=== PATIENT | male | born 1990 | race Native Hawaiian/Other Pacific Islander ===

== ENCOUNTER 2017-10-26 18:31 | Emergency (ER) | payer OTHER ==
[2017-10-26] MEDS ORDERED: KETOROLAC 60 MG/2 ML VIAL IM STA (18:49)
[2017-10-26] MEDS ORDERED: IBUPROFEN 800 MG TAB PO STA (18:55)
--- NOTE | 2017-10-26 19:20 | XR ---
PROCEDURE: XR ankle complete LT 3 views DATE AND TIME: 10/26/2017 7:14 PM REFERRING PHYSICIAN: Sam Jimenez DO CLINICAL INDICATION: PHH, Pain TECHNIQUE: Department protocol. COMPARISON: None FINDINGS: There is no fracture or malalignment. The soft tissues are unremarkable. IMPRESSION: NO ACUTE PROCESS.
--- NOTE | 2017-10-26 19:20 | XR ---
PROCEDURE: XR tibia fibula LT 2 views DATE AND TIME: 10/26/2017 7:14 PM REFERRING PHYSICIAN: Sam Jimenez DO CLINICAL INDICATION: PHH, Pain after injury TECHNIQUE: Department protocol. COMPARISON: None FINDINGS: There is no fracture or malalignment. The soft tissues are unremarkable. IMPRESSION: NO ACUTE PROCESS.
--- NOTE | 2017-10-26 19:21 | XR ---
PROCEDURE: XR foot complete RT 3 views DATE AND TIME: 10/26/2017 7:14 PM REFERRING PHYSICIAN: Sam Jimenez DO CLINICAL INDICATION: PHH, Pain TECHNIQUE: Department protocol. COMPARISON: None FINDINGS: There is no fracture or malalignment. The soft tissues are unremarkable. IMPRESSION: NO ACUTE PROCESS.
--- NOTE | 2017-10-26 19:22 | XR ---
PROCEDURE: XR knee complete LT - 3V DATE AND TIME: 10/26/2017 7:14 PM REFERRING PHYSICIAN: Sam Jimenez DO CLINICAL INDICATION: PHH, Pain TECHNIQUE: Department protocol. COMPARISON: None FINDINGS: There is no fracture or malalignment. The soft tissues are unremarkable. IMPRESSION: NO ACUTE PROCESS.
--- NOTE | 2017-10-26 19:48 | ED ---
Fall HPI - General Chief Complaint: Fall Stated Complaint: 15' fall from roof Time Seen by Provider: 10/26/17 18:44 Source: patient Mode of arrival: wheelchair - History of Present Illness Initial Comments: This 27-year-old male presents with a complaint of a fall from the roof. He states that he is approximately 13 feet high when this occurred. He apparently had some slight range of a metal roof and he slid down and landed on his feet. He is complaining of some pain to his right heel, his left ankle, left tibia/ fibula, and left knee. He did continue to work for the rest of the day as this did occur at 11 AM. He has been able to ambulate but states that he's been limping. He has not taken anything for pain for it as of yet. He denies any back pain. There are no other injuries or complaints or modifying factors. - Related Data Home Medications Medication Instructions Recorded Confirmed No Known Home Medications 05/31/15 10/26/17 Allergies Allergy/AdvReac Type Severity Reaction Status Date / Time No Known Allergies Allergy Verified 10/26/17 18:43 Review of Systems ROS Statement: Those systems with pertinent positive or pertinent negative responses have been documented in the HPI. ROS Other: All systems not noted in ROS Statement are negative. Past Medical History Past Medical History: Asthma History of Any Multi-Drug Resistant Organisms: None Reported Past Surgical History: No Surgical Hx Reported Past Psychological History: No Psychological Hx Reported Smoking Status: Never smoker Past Alcohol Use History: Occasional Past Drug Use History: None Reported General Exam - General Exam Comments Initial Comments: GENERAL: The patient is well nourished and well hydrated. VITAL SIGNS: Heart rate, blood pressure, respiratory rate reviewed as recorded in nurse's notes. EYES: Pupils are round and reactive. Extraocular movements are intact. No conjunctival / lid redness or swelling. ENT: No external evidence of injury, swelling, or ecchymosis. Airway is patent. Throat is clear. NECK: Nontender. No swelling or evidence of injury. No subcutaneous emphysema. Trachea is midline. No thyroid mass. HEART: Regular rate and rhythm. Good peripheral pulses. LUNGS/CHEST: Breath sounds clear and equal bilaterally. No rales, rhonchi, or wheezes. No ecchymosis, subcutaneous emphysema, or tenderness. ABDOMEN: Abdomen soft without tenderness. No palpable masses or organomegaly. No peritoneal signs. No abdominal wall swelling or ecchymosis. EXTREMITIES: There is tenderness present to the left knee, the lateral aspect of the left tibia/fibula, and the left ankle laterally. There is also some slight tenderness present to the right calcaneus. There is no evidence of any swelling or erythema. There is no lacerations noted. Patient is ambulatory with slight limp. Normal muscle tone and function. No thoracolumbar tenderness. NEUROLOGIC: Sensation is grossly intact. Cranial nerve exam reveals face is symmetrical, tongue is midline, speech is clear. SKIN: No abrasions or ecchymosis is noted. No induration or masses noted. PSYCHIATRIC: Alert and oriented. Appropriate behavior and judgment. Limitations: no limitations Course Vital Signs 10/26/17 18:37 Temperature 98.5 F Pulse Rate 20 L Respiratory 16 Rate Blood Pressure 161/85 O2 Sat by Pulse 97 Oximetry Medical Decision Making - Medical Decision Making The patient was seen and examined. X-rays were taken of the right foot, left ankle, left tibia/fibular, and the left knee. No fracture or acute osseous abnormality is identified. He does receive Motrin 800 for pain. He is in no significant distress on recheck. It is felt that he does have contusions and sprains but he is stable for discharge. Is counseled regarding his diagnosis in detail and he leaves in no distress. Disposition Clinical Impression: Fall, Knee sprain, Ankle sprain, Foot contusion, Hypertension Disposition: HOME SELF-CARE Condition: Good Instructions: Knee Sprain (ED), Ankle Sprain (ED), Foot Contusion (ED), Hypertension (ED) Is patient prescribed a controlled substance at d/c from ED?: No Referrals: None,Stated [Primary Care Provider] - 1-2 days Time of Disposition: 19:47
[2017-10-26 20:03] VITALS: BP 142/77; PULSE 56; RESP 18; TEMP 99.1
== END 2017-10-26 20:02 | disposition home or self-care (01) ==
LOC: EC 18:31
DX: S93.402A Sprain of unspecified ligament of left ankle, initial encounter (principal); S83.92XA Sprain of unspecified site of left knee, initial encounter; S90.31XA Contusion of right foot, initial encounter; I10 Essential (primary) hypertension; W13.2XXA Fall from, out of or through roof, initial encounter
CPT/HCPCS: 99283

== ENCOUNTER 2018-04-28 14:30 | Emergency (ER) | payer OTHER ==
[2018-04-28] MEDS ORDERED: IPRATROPIUM-ALBUTEROL 3 ML NEB INHALATION STA (15:14)
--- NOTE | 2018-04-28 15:24 | XR ---
EXAMINATION TYPE: XR chest 2V DATE OF EXAM: 04/28/2018 COMPARISON: NONE HISTORY: Cough and chest pain TECHNIQUE: Frontal and lateral views of the chest are obtained. FINDINGS: No focal consolidation, pleural effusion or pneumothorax. The cardio missile silhouette is within normal limits. Airway is clear. Visualized osseous structures are intact. Limited evaluation o f the upper abdomen is unremarkable. IMPRESSION: No acute cardiopulmonary process.
[2018-04-28] MEDS ORDERED: SODIUM CHLORIDE 0.9% 1,000 ML IV STA (15:30)
[2018-04-28 15:37] LABS: Basophils % (A) 0 %; Eosinophils # (A) 0.2 k/uL (0-0.7); Eosinophils % (A) 2 %; HCT 46.9 % (39.0-53.0); HGB 15.6 gm/dL (13.0-17.5); Lymphocytes # (A) 1.4 k/uL (1.0-4.8); Lymphocytes % (A) 15 %; MCH 26.1 pg (25.0-35.0); MCHC 33.2 g/dL (31.0-37.0); MCV 78.5 fL (80.0-100.0); Mean Platelet Volume 6.7; Monocytes # (A) 0.6 k/uL (0-1.0); Monocytes % (A) 6 %; Neutrophils # (A) 6.8 k/uL (1.3-7.7); Neutrophils % (A) 74 %; Platelet Count 294 k/uL (150-450); RBC 5.97 m/uL (4.30-5.90); RDW 13.3 % (11.5-15.5); WBC 9.2 k/uL (3.8-10.6)
[2018-04-28 15:43] LABS: ALT 46 U/L (21-72); AST 23 U/L (17-59); Albumin 4.7 g/dL (3.5-5.0); Alkaline Phosphatase 66 U/L (38-126); Anion Gap 8 mmol/L; Blood Urea Nitrogen 10 mg/dL (9-20); Calcium 9.9 mg/dL (8.4-10.2); Carbon Dioxide 30 mmol/L (22-30); Chloride 101 mmol/L (98-107); Glucose 105 mg/dL (74-99); Potassium 5.1 mmol/L (3.5-5.1); Sodium 139 mmol/L (137-145); Total Bilirubin 0.7 mg/dL (0.2-1.3); Total Protein 7.9 g/dL (6.3-8.2)
--- NOTE | 2018-04-28 16:11 | ED ---
General Adult HPI - General Chief complaint: Upper Respiratory Infection Stated complaint: Cough Source: patient, RN notes reviewed, old records reviewed Mode of arrival: ambulatory Limitations: no limitations - History of Present Illness Initial comments: 27-year-old male patient with past medical history of asthma presents to ED with 3 weeks of nonproductive cough, and one week of substernal chest tightness/ chest pressure. Patient states that this is worse when coughing. Patient reports of the chest pressure is substernal, not exacerbated by exertion. Patient denies any shortness of breath. Patient denies any fever/chills, abdominal pain, or any other complaints. Systemic: Pt denies fatigue, myalgia, fever/chills, rash. Pt denies weakness, night sweats, weight loss. Neuro: Pt denies headache, visual disturbances, syncope or pre-syncope. HEENT: Pt denies ocular discharge or irritation, otalgia, rhinorrhea, pharyngitis or notable lymphadenopathy. Cardiopulmonary: Pt denies SOB, heart palpitations, dyspnea on exertion. Abdominal/GI: Pt denies abdominal pain, n/v/d. : Pt denies dysuria, burning w/ urination, frequency/urgency. Denies new onset urinary or bowel incontinence. MSK: Pt denies myalgia, loss of strength or function in extremities. Neuro: Pt denies new onset weakness, paresthesias. - Related Data Previous Rx's Medication Instructions Recorded Albuterol Inhaler [Ventolin Hfa 1 - 2 puff INHALATION Q4-6H PRN #1 04/28/18 Inhaler] inhaler Benzonatate [Tessalon Perles] 100 mg PO TID PRN #20 capsule 04/28/18 methylPREDNISolone Dose Pack 4 mg PO DIRECTED #21 package 04/28/18 [Medrol Dose Pack] Allergies Allergy/AdvReac Type Severity Reaction Status Date / Time No Known Allergies Allergy Verified 04/28/18 14:51 Review of Systems ROS Statement: Those systems with pertinent positive or pertinent negative responses have been documented in the HPI. ROS Other: All systems not noted in ROS Statement are negative. Past Medical History Past Medical History: Asthma History of Any Multi-Drug Resistant Organisms: None Reported Past Surgical History: No Surgical Hx Reported Past Psychological History: No Psychological Hx Reported Smoking Status: Never smoker Past Alcohol Use History: Occasional Past Drug Use History: None Reported General Exam - General Exam Comments Initial Comments: Constitutional: NAD, AOX3, Pt has pleasant affect. HEENT: NC/AT, trachea midline, neck supple, no lymphadenopathy. Posterior pharynx non erythematous, without exudates. External ears appear normal, without discharge. Mucous membranes moist. Eyes PERRLA, EOM intact. There is no scleral icterus. No pallor noted. Cardiopulmonary: RRR, no murmurs, rubs or gallops, no JVD noted. Mild wheezing noted in left upper lobe, all other lung steinberg clear to auscultation. All lung steinberg CTAB after breathing treatment. No peripheral edema. Abdominal exam: Abdomen soft and non-distended. Abdomen non-tender to palpation in all 4 quadrants. Bowel sounds active in LLQ. No hepatosplenomegaly. No ecchymosis Neuro: CN II-XII grossly intact. No nuchal rigidity. MSK: No posterior calf tenderness bilaterally, homans sign negative bilaterally. Posterior tibialis and radial pulse +2 bilaterally. Sensation intact in upper and lower extremities. Full active ROM in upper and lower extremities, 5/5 strength. Limitations: no limitations Course Vital Signs 04/28/18 04/28/18 04/28/18 14:48 14:58 15:27 Temperature 98.8 F 99.3 F Pulse Rate 123 H 95 75 Respiratory 20 18 16 Rate Blood Pressure 130/89 O2 Sat by Pulse 98 96 Oximetry 04/28/18 15:33 Temperature Pulse Rate 76 Respiratory 16 Rate Blood Pressure O2 Sat by Pulse Oximetry Medical Decision Making - Medical Decision Making 27-year-old male patient with past medical history of asthma presents to ED with 3 weeks of nonproductive cough, and one week of substernal chest tightness/ chest pressure. Patient states that this is worse when coughing. Patient reports of the chest pressure is substernal, not exacerbated by exertion. Patient denies any shortness of breath. Patient initial vital signs displayed mild tachycardia, subsequent patient vital signs were stable, afebrile. Physical exam displayed some mild wheezing. This resolved after DuoNeb breathing treatment. Patient subjectively felt as if he was breathing better after treatment. Laboratory investigations revealed noncompressive CBC, CMP. Troponin and d-dimer are negative. Influenza swabs are negative. EKG not concerning for acute ischemia. Chest x-ray did not display acute cardiopulmonary process. Patient diagnosed and treated for bronchitis. Patient to follow up with PCP in 1-2 days. Patient to return to ED if new signs symptoms develop, or if condition worsens in any way. Case discussed in depth with Dr. Estrella. - Lab Data Result diagrams: 04/28/18 15:20 04/28/18 15:20 Lab Results 04/28/18 04/28/18 04/28/18 Range/Units 14:55 15:20 15:20 WBC 9.2 (3.8-10.6) k/uL RBC 5.97 H (4.30-5.90) m/uL Hgb 15.6 (13.0-17.5) gm/dL Hct 46.9 (39.0-53.0) % MCV 78.5 L (80.0-100.0) fL MCH 26.1 (25.0-35.0) pg MCHC 33.2 (31.0-37.0) g/dL RDW 13.3 (11.5-15.5) % Plt Count 294 (150-450) k/uL Neutrophils % 74 % Lymphocytes % 15 % Monocytes % 6 % Eosinophils % 2 % Basophils % 0 % Neutrophils # 6.8 (1.3-7.7) k/uL Lymphocytes # 1.4 (1.0-4.8) k/uL Monocytes # 0.6 (0-1.0) k/uL Eosinophils # 0.2 (0-0.7) k/uL Basophils # 0.0 (0-0.2) k/uL D-Dimer (<0.60) mg/L FEU Sodium 139 (137-145) mmol/L Potassium 5.1 (3.5-5.1) mmol/L Chloride 101 (98-107) mmol/L Carbon Dioxide 30 (22-30) mmol/L Anion Gap 8 mmol/L BUN 10 (9-20) mg/dL Creatinine 0.68 (0.66-1.25) mg/dL Est GFR (CKD-EPI)AfAm >90 (>60 ml/min/1.73 sqM) Est GFR (CKD-EPI)NonAf >90 (>60 ml/min/1.73 sqM) Glucose 105 H (74-99) mg/dL Calcium 9.9 (8.4-10.2) mg/dL Total Bilirubin 0.7 (0.2-1.3) mg/dL AST 23 (17-59) U/L ALT 46 (21-72) U/L Alkaline Phosphatase 66 (38-126) U/L Troponin I (0.000-0.034) ng/mL Total Protein 7.9 (6.3-8.2) g/dL Albumin 4.7 (3.5-5.0) g/dL Influenza Type A RNA Not Detected (Not Detectd) Influenza Type B (PCR) Not Detected (Not Detectd) 04/28/18 04/28/18 Range/Units 15:20 15:20 WBC (3.8-10.6) k/uL RBC (4.30-5.90) m/uL Hgb (13.0-17.5) gm/dL Hct (39.0-53.0) % MCV (80.0-100.0) fL MCH (25.0-35.0) pg MCHC (31.0-37.0) g/dL RDW (11.5-15.5) % Plt Count (150-450) k/uL Neutrophils % % Lymphocytes % % Monocytes % % Eosinophils % % Basophils % % Neutrophils # (1.3-7.7) k/uL Lymphocytes # (1.0-4.8) k/uL Monocytes # (0-1.0) k/uL Eosinophils # (0-0.7) k/uL Basophils # (0-0.2) k/uL D-Dimer 0.24 (<0.60) mg/L FEU Sodium (137-145) mmol/L Potassium (3.5-5.1) mmol/L Chloride (98-107) mmol/L Carbon Dioxide (22-30) mmol/L Anion Gap mmol/L BUN (9-20) mg/dL Creatinine (0.66-1.25) mg/dL Est GFR (CKD-EPI)AfAm (>60 ml/min/1.73 sqM) Est GFR (CKD-EPI)NonAf (>60 ml/min/1.73 sqM) Glucose (74-99) mg/dL Calcium (8.4-10.2) mg/dL Total Bilirubin (0.2-1.3) mg/dL AST (17-59) U/L ALT (21-72) U/L Alkaline Phosphatase (38-126) U/L Troponin I <0.012 (0.000-0.034) ng/mL Total Protein (6.3-8.2) g/dL Albumin (3.5-5.0) g/dL Influenza Type A RNA (Not Detectd) Influenza Type B (PCR) (Not Detectd) - EKG Data -: EKG Interpreted by Me (and dr estrella ) EKG Comments: Ventricular rate 103,. For one 82, QRS 108, QT/QTC 340/445. Sinus tachycardia. Possible left atrial enlargement. No concerns for acute ischemia. no significant Change in comparison to prior EKG. Disposition Clinical Impression: Bronchitis Disposition: HOME SELF-CARE Condition: Good Instructions: Acute Bronchitis (ED) Additional Instructions: Patient to adhere to previously discussed treatment plan and will take medication(s) as directed. Patient to follow up with PCP in 1-2 days. Patient to return to ED if symptoms do not improve. Prescriptions: Albuterol Inhaler [Ventolin Hfa Inhaler] 1 - 2 puff INHALATION Q4-6H PRN #1 inhaler PRN Reason: Cough Benzonatate [Tessalon Perles] 100 mg PO TID PRN #20 capsule PRN Reason: Cough methylPREDNISolone Dose Pack [Medrol Dose Pack] 4 mg PO DIRECTED #21 package Is patient prescribed a controlled substance at d/c from ED?: No Referrals: None,Stated [Primary Care Provider] - 1-2 days
[2018-04-28 16:31] VITALS: BP 144/62; PULSE 95; RESP 18; TEMP 98.9
== END 2018-04-28 16:30 | disposition home or self-care (01) ==
LOC: EC 14:30
DX: J40 Bronchitis, not specified as acute or chronic (principal)
CPT/HCPCS: 36415; 71046; 80053; 84484; 85025; 85379; 87502; 93005; 94640; 96360; 99284

== ENCOUNTER 2018-06-23 03:42 | Emergency (ER) | payer OTHER ==
[2018-06-23 05:43] LABS: Amphetamine Screen,Urine Not Detected (NotDetected); Barbiturate Screen,Urine Not Detected (NotDetected); Benzodiazepines Screen,Urine Not Detected (NotDetected); Cocaine Screen,Urine Not Detected (NotDetected); Methadone Screen, Urine Not Detected (NotDetected); Opiate Screen,Urine Not Detected (NotDetected); Oxycodone Screen, Urine Not Detected (NotDetected); Phencyclidine Screen,Urine Not Detected (NotDetected); Tricyclic Antidepressant,Urine Not Detected (NotDetected); Urn Cannabinoid Scrn Not Detected (NotDetected)
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
[2018-06-23 14:00] VITALS: BP 145/62; PULSE 85; RESP 16; TEMP 97.9
== END 2018-06-23 13:30 | disposition home or self-care (01) ==
LOC: EC 03:42
DX: F43.20 Adjustment disorder, unspecified (principal); F10.129 Alcohol abuse with intoxication, unspecified; R45.851 Suicidal ideations
CPT/HCPCS: 80306; 82075; 99285